=== PATIENT | female | born 1970 | race Caucasian/White ===

== ENCOUNTER → 2024-02-06 | Outpatient (REF) | payer OTHER ==
[2024-02-06 15:42] LABS: APPEARANCE, URINE CLEAR (CLEAR); BACTERIA, URINE AUTO NEGATIVE (NEGATIVE); BILIRUBIN, URINE AUTO NEGATIVE (NEGATIVE); BLOOD, URINE BLOOD NEGATIVE (NEGATIVE); COLOR, URINE YELLOW (YELLOW); GLUCOSE, URINE (UA) AUTO NEGATIVE (NEGATIVE); KETONE, URINE AUTO NEGATIVE (NEGATIVE); LEUKOCYTE ESTERASE, URINE AUTO NEGATIVE (NEGATIVE); MUCUS, URINE SMALL (NEGATIVE); NITRITE, URINE AUTO NEGATIVE (NEGATIVE); PROTEIN, URINE AUTO NEGATIVE (NEGATIVE); RBC, URINE AUTO 4 /HPF (0-3); SPECIFIC GRAVITY URINE AUTO 1.018 (1.002-1.035); SQUAMOUS EPITHELIAL CELL UR AU 0 /HPF (0-6); WBC, URINE AUTO 2 /HPF (0-3)
== END ==
LOC: M SMT 14:57
PROVIDERS: ATTEND Specialist
DX: R31.29 Other microscopic hematuria (principal)

== ENCOUNTER → 2024-02-16 | Outpatient (CLI) | payer OTHER ==
[2024-02-16 12:37] LABS: BLOOD UREA NITROGEN 25 MG/DL (9-23); CALCIUM LEVEL 9.4 MG/DL (8.5-10.1); CARBON DIOXIDE LEVEL 32 MMOL/L (20-31); CHLORIDE LEVEL 102 MMOL/L (98-107); CREATININE FOR GFR 0.86 MG/DL (0.55-1.30); GLOMERULAR FILTRATION RATE > 60.0 (>51); GLUCOSE, FASTING 202 MG/DL (60-100); POTASSIUM SERUM 4.1 MMOL/L (3.5-5.1); SODIUM LEVEL 140 MMOL/L (136-145)
== END ==
LOC: M LAB 10:34
PROVIDERS: ATTEND Physician Assistant
DX: R31.29 Other microscopic hematuria (principal)

== ENCOUNTER → 2024-02-20 | Outpatient (CLI) | payer OTHER ==
[~2024-02-20] MED LIST: ISOVUE-370 76% 100ML VIAL As Ordered ONE
== END ==
LOC: M RAD 13:35
PROVIDERS: ATTEND Specialist
DX: N20.0 Calculus of kidney (principal); R31.29 Other microscopic hematuria
CPT/HCPCS: 74178; Q9967

== ENCOUNTER → 2024-03-29 | Outpatient (REF) | payer OTHER | LOC: M SMT 16:57 | PROVIDERS: ATTEND Specialist | DX: R31.29 Other microscopic hematuria (principal) ==

== ENCOUNTER 2024-05-09 09:08 | Day surgery (SDC) | payer OTHER ==
[~2024-05-09] VITALS: Ht 162.6 cm; Wt 122.9 kg
[~2024-05-09 09:08] MED LIST changes: +ATOR80TA59 PO; +AZIT500T5 PO; +D 50CAP2 PO; +FLUTISP; +HYDR-3490 PO; -ISOVUE-370 76% 100ML VIAL As Ordered ONE; +LISI10TA22 PO; +METF500T13 PO; +METH-1165 PO; +MONT10TA97 PO; +MULLEIN PO; +NIFE90TA46 PO; +OMEP-173 PO; +POTA99CA2 PO; +PRED20TA PO; +QUNO100C PO; +TREL1AER INH; +VENTAER INH
[2024-05-09] MEDS ORDERED: LR 1,000 ML IV SCH (09:40)
[2024-05-09] MEDS ORDERED: KETOROLAC 60MG 2ML VIAL As Ordered ONE (10:09)
[2024-05-09] MEDS ORDERED: MIDAZOLAM INJ 2MG/2ML VIAL As Ordered ONE (10:09)
[2024-05-09] MEDS ORDERED: LIDOCAINE 2% 100MG/5ML SDV (FOR ANES.) As Ordered ONE (10:09)
[2024-05-09] MEDS ORDERED: propofoL 200 MG/20 ML VIAL As Ordered ONE (10:09)
[2024-05-09] MEDS ORDERED: ONDANSETRON 4MG 2ML VIAL As Ordered ONE (10:09)
[2024-05-09] MEDS ORDERED: ceFAZolin SOD 2 GM in IV 1 EA IV ONE (10:30)
[2024-05-09] MEDS ORDERED: ALBUTEROL SULFATE 2.5MG/0.5ML INH NEB SOLN As Ordered ONE (10:59)
[2024-05-09] MEDS: ALBUTEROL SULFATE 2.5MG/0.5ML INH NEB SOLN NEB ONE (11:13)
[2024-05-09] MEDS: ceFAZolin SOD 1 GM in D5W MINI-BAG PLUS 50 ML IV ONE (11:28)
[2024-05-09] MEDS ORDERED: PERC5TAB12 PO (11:46)
[2024-05-09] MEDS ORDERED: FLOM0.4C39 PO (11:46)
[2024-05-09] MEDS ORDERED: TRAM50TA2 PO (11:46)
[2024-05-09] MEDS ORDERED: ONDA-83 PO (11:48)
[2024-05-09 12:37] VITALS: BP 135/79; TEMP 97.3; O2SAT 95
== END 2024-05-09 12:52 | disposition home or self-care (01) ==
LOC: M SDC 09:08
PROVIDERS: ATTEND Urology
DX: N20.0 Calculus of kidney (principal); E11.9 Type 2 diabetes mellitus without complications; G47.30 Sleep apnea, unspecified; Z88.5 Allergy status to narcotic agent; F17.210 Nicotine dependence, cigarettes, uncomplicated; Z79.899 Other long term (current) drug therapy
CPT/HCPCS: 50590; 74018; J0690; J2250; J2405

== ENCOUNTER → 2024-05-29 | Outpatient (REF) | payer OTHER ==
[~2024-05-29] MED LIST changes: +FLOM0.4C39 PO; +ONDA-83 PO; +PERC5TAB12 PO; +TRAM50TA2 PO
== END ==
LOC: M SMT 17:00
PROVIDERS: ATTEND Specialist
DX: N20.0 Calculus of kidney (principal)

== ENCOUNTER 2024-07-06 14:18 | Emergency (ER) | payer OTHER ==
[~2024-07-06] VITALS: Ht 162.6 cm; Wt 125.0 kg
[2024-07-06 15:27] LABS: BASO % 0.4 % (0.0-1.0); EOS # 0.1 10^3/uL (0.0-0.5); EOS % 0.5 % (0.0-3.0); HEMATOCRIT 42.8 % (36.0-47.0); HEMOGLOBIN 14.8 g/dl (12.0-15.5); LYMPH # 1.8 10^3/uL (1.5-5.0); LYMPH % 16.3 % (24.0-44.0); MEAN CORPUSCULAR HEMOGLOBIN 29.1 pg (27.0-33.0); MEAN CORPUSCULAR HGB CONC 34.6 g/dl (32.0-36.5); MEAN CORPUSCULAR VOLUME 84.1 fl (80.0-96.0); MONO # 0.3 10^3/uL (0.0-0.8); MONO % 2.7 % (2.0-8.0); NEUTROPHILS # 8.7 10^3/uL (1.5-8.5); NEUTROPHILS % 78.9 % (36.0-66.0); PLATELET COUNT, AUTOMATED 242 10^3/uL (150-450); RED BLOOD COUNT 5.09 10^6/uL (4.00-5.40); WHITE BLOOD COUNT 11.1 10^3/uL (4.0-10.0)
[2024-07-06] MEDS: KETOROLAC 30 MG/ML 1ML VIAL IV ONE (15:35)
[2024-07-06] MEDS ORDERED: ISOVUE-370 76% 100ML VIAL As Ordered ONE (15:37)
[2024-07-06 15:45] LABS: LIPASE 36 U/L (12-53)
[2024-07-06 15:46] LABS: ALBUMIN 3.8 G/DL (3.2-5.2); ALKALINE PHOSPHATASE 159 U/L (35-104); ALT/SGPT 29 U/L (7.0-40); AST/SGOT < 8 U/L (<34); BILIRUBIN,DIRECT 0.2 MG/DL (<0.4); BILIRUBIN,TOTAL 0.7 MG/DL (0.3-1.2); TOTAL PROTEIN 7.4 G/DL (5.7-8.2)
[2024-07-06] MEDS: LORazepam 2 MG/ML 1ML VIAL IV STA (16:24)
[2024-07-06] MEDS ORDERED: PROHANCE 279.3MG/ML 5ML VIAL As Ordered ONE (17:34)
[2024-07-06] MEDS ORDERED: PROHANCE 279.3MG/ML 15ML VIAL As Ordered ONE (17:34)
[2024-07-06 20:18] VITALS: BP 139/76; TEMP 98.8; O2SAT 98
== END 2024-07-06 20:19 | disposition home or self-care (01) ==
LOC: M ED 14:18
DX: M54.14 Radiculopathy, thoracic region (principal); N21.0 Calculus in bladder; N20.0 Calculus of kidney; M51.369 Other intervertebral disc degeneration, lumbar region without mention of lumbar back pain or lower extremity pain; M51.27 Other intervertebral disc displacement, lumbosacral region; Z88.5 Allergy status to narcotic agent; Z79.899 Other long term (current) drug therapy; E11.9 Type 2 diabetes mellitus without complications; I10 Essential (primary) hypertension; Z87.442 Personal history of urinary calculi; J44.9 Chronic obstructive pulmonary disease, unspecified; Z98.51 Tubal ligation status; F17.200 Nicotine dependence, unspecified, uncomplicated
CPT/HCPCS: 72157; 72158; 74177; 80047; 80076; 81001; 83690; 85025; 96374; 96375; 99284; A9576; J1885; J2060; Q9967

== ENCOUNTER 2025-03-17 11:09 | Day surgery (SDC) | payer OTHER ==
[~2025-03-17] VITALS: Ht 162.6 cm; Wt 123.2 kg
[~2025-03-17 11:09] MED LIST changes: +FAMO1TAB11 PO; -FLOM0.4C39 PO; +RA M500C PO; +TAMS-18 PO
[2025-03-17] MEDS ORDERED: LR 1,000 ML IV SCH ×2 (11:45→14:30)
[2025-03-17] MEDS ORDERED: MIDAZOLAM INJ 2 MG/2 ML VIAL As Ordered ONE (12:28)
[2025-03-17] MEDS ORDERED: dexAMETHasone 4 MG/ML 1 ML VIAL As Ordered ONE (12:30)
[2025-03-17] MEDS ORDERED: LIDOCAINE 2% 100 MG/5 ML SDV (FOR ANES.) As Ordered ONE (13:03)
[2025-03-17] MEDS ORDERED: ONDANSETRON 4MG 2ML VIAL As Ordered ONE (13:03)
[2025-03-17] MEDS ORDERED: KETOROLAC 30 MG/ML 1 ML VIAL As Ordered ONE (13:03)
[2025-03-17] MEDS ORDERED: ACETAMINOPHEN 1000MG/100ML IV BAG As Ordered ONE (13:26)
[2025-03-17] MEDS ORDERED: ceFAZolin SOD 3 GM in DEXTROSE 5% (D5W) MINI-BAG PLU 1... IV ONE (14:00)
[2025-03-17] MEDS: LIDOCAINE W/EPINEPHrine 1% 20 ML VIAL As Ordered ONE (14:12)
[2025-03-17] MEDS ORDERED: hydrALAZINE 20 MG/ML 1 ML VIAL As Ordered ONE (14:51)
[2025-03-17] MEDS: hydrALAZINE 20 MG/ML 1 ML VIAL IV PRN (14:53)
[2025-03-17] MEDS: ONDANSETRON 4MG 2ML VIAL IV PRN (15:13)
[2025-03-17] MEDS ORDERED: BUPivacaine LIPOSOME/PF 133 MG/10 ML VIAL PN ONE (15:20)
[2025-03-17] MEDS ORDERED: MIDAZOLAM INJ 2 MG/2 ML VIAL IV PRN (16:05)
[2025-03-17] MEDS ORDERED: ROPIvacaine 0.5% 30ML VIAL PN ONE (16:05)
[2025-03-17] MEDS ORDERED: LIDOCAINE 1% SDV 5 ML VIAL PN ONE (16:05)
[2025-03-17] MEDS ORDERED: LABETALOL 100 MG/20 ML VIAL As Ordered ONE (17:07)
[2025-03-17] MEDS: LABETALOL 100 MG/20 ML VIAL IV PRN (17:08)
[2025-03-17 17:27] VITALS: BP 169/87; TEMP 97.4; O2SAT 96
== END 2025-03-17 17:48 | disposition home or self-care (01) ==
LOC: M SDC 11:09
PROVIDERS: ATTEND Orthopaedic Surgery Hand Surgery
DX: G56.01 Carpal tunnel syndrome, right upper limb (principal); G56.21 Lesion of ulnar nerve, right upper limb; E11.9 Type 2 diabetes mellitus without complications; Z68.41 Body mass index [BMI] 40.0-44.9, adult; G47.30 Sleep apnea, unspecified; Z88.5 Allergy status to narcotic agent; Z79.899 Other long term (current) drug therapy; F17.210 Nicotine dependence, cigarettes, uncomplicated
CPT/HCPCS: 29848; 29999; J0131; J0360; J0665; J0690; J1100; J1885; J1920; J2250; J2405; J3010